=== PATIENT | male | born 1975 | race Caucasian/White ===

== ENCOUNTER 2023-01-26 03:11 | Emergency (ER) | payer OTHER ==
[~2023-01-26] VITALS: Ht 167.6 cm; Wt 93.2 kg
[2023-01-26] MEDS: ondansetron/PF 4mg/2ml inj IV STA ×2 (03:48→04:08)
[2023-01-26] MEDS: morphine 4 MG/ML inj SYRINge IV STA ×2 (03:48→04:08)
[2023-01-26] MEDS: ketorolac trometh. 30mg/ml inj. IV STA ×2 (03:48→04:08)
[2023-01-26 03:49] LABS: BASOPHILS # (AUTO) 0.1 X10'3 (0-0.2); BASOPHILS % (AUTO) 0.9 % (0-1); EOSINOPHILS # (AUTO) 0.1 X10'3 (0-0.9); EOSINOPHILS % (AUTO) 1.1 % (0-6); HEMATOCRIT 41.3 % (42.0-52.0); LYMPHOCYTES # (AUTO) 1.6 X10'3 (1.1-4.8); LYMPHOCYTES % (AUTO) 19.2 % (21-51); MEAN CORPUSCULAR VOLUME 94.3 FL (78-98); MEAN PLATELET VOLUME 7.3 FL (7.4-10.4); MONOCYTES # (AUTO) 0.6 X10'3 (0-0.9); MONOCYTES % (AUTO) 6.8 % (2-12); PLATELET COUNT 228 X10'3 (140-440); RED BLOOD COUNT 4.38 X10'6 (4.70-6.10); RED CELL DISTRIBUTION WIDTH 13.6 % (11.5-14.5); WHITE BLOOD COUNT 8.3 X10'3 (4.5-11.0)
[2023-01-26] MEDS ORDERED: famotidine/PF 10 mg/ml inj IV ONE (03:50)
[2023-01-26] MEDS ORDERED: ondansetron/PF 4mg/2ml inj IV ONE (03:50)
[2023-01-26] MEDS ORDERED: morphine 4 MG/ML inj SYRINge IV ONE (03:50)
--- NOTE | 2023-01-26 04:01 | NUR ---
0348 IV MEDS ZOFRAN, MS AND TORADOL ADMIN PER ORDER BY RITESH Hyman CHARTED UNDER THIS NURSES NAME ERRONOUSLY. EC SYSTEM WILL NOT ALLOW FOR ANY ADMINISTRATION CHANGES. NO ASE NOTED, APPEARS TO BE EFFECTIVE THUS FAR. PT REPORTS 0/10 PAIN.
[2023-01-26 04:02] LABS: ANION GAP 8 (8-16); BLOOD UREA NITROGEN 20 MG/DL (7-18); BUN/CREATININE RATIO 14.1 (10.0-20.0); CHLORIDE 101 MMOL/L (99-107); CREATININE 1.42 MG/DL (0.60-1.10); GLUCOSE 161 MG/DL (70-104); POTASSIUM 3.4 MMOL/L (3.5-5.1); SODIUM 136 MMOL/L (135-145); TOTAL CARBON DIOXIDE 26.8 MMOL/L (24-32)
[2023-01-26 04:03] LABS: ALANINE AMINOTRANSFERASE 34 U/L (12-78); ALBUMIN 4.2 G/DL (3.4-5.0); ALKALINE PHOSPHATASE 69 IU/L (46-116); ASPARTATE AMINO TRANSFERASE 27 U/L (10-37); BILIRUBIN,TOTAL 0.5 MG/DL (0.1-1.0); CALCIUM 8.9 MG/DL (8.5-10.1); ETHANOL < 10 MG/DL (<10); LIPASE 21 U/L (16-77); MAGNESIUM 1.9 MG/DL (1.5-2.4); TOTAL PROTEIN 8.4 G/DL (6.4-8.2); eCRCL 59 ML/MIN; eGFR 54 ML/MIN
--- NOTE | 2023-01-26 05:50 | NUR ---
UNABLE TO OBTAIN A TEMP ON PT, ORAL, TEMPORAL AND AXILLARY. PT FEELS WARM AND NO C/O BEING COLD OR CHILLS. CRN AND PROVIDER AWARE.
[2023-01-26 06:12] LABS: BILIRUBIN,URINE NEGATIVE (Neg); CLARITY,URINE CLEAR (Clear); COLOR,URINE YELLOW (Yellow); GLUCOSE, URINE NEGATIVE (Neg); KETONES,URINE NEGATIVE (Neg); LEUKOCYTE ESTERASE ,URINE NEGATIVE (Neg); NITRITES, URINE NEGATIVE (Neg); OCCULT BLOOD,URINE MODERATE (Neg); PROTEIN,URINE NEGATIVE (Neg); UROBILINOGEN,URINE 0.2 E.U/dL (0.2-1.0)
[2023-01-26 06:20] LABS: UA COLLECTION TYPE CLN CATCH MIDSTREAM
[2023-01-26 06:25] LABS: BACTERIA,URINE FEW /HPF (Neg); HYALINE CASTS 0-3 /LPF (NEGATIVE); MUCUS STRANDS MODERATE /LPF (Neg); SQUAMOUS EPITHELIAL CELL,UR FEW /LPF (FEW)
[2023-01-26 06:33] VITALS: TEMP 97.8
[2023-01-26 06:48] LABS: URINE AMPHETAMINE SCREEN NEGATIVE (Neg); URINE BARBITUATE SCREEN NEGATIVE (Neg); URINE BENZODIAZEPINES SCREEN NEGATIVE (Neg); URINE CANNABINOID SCREEN NEGATIVE (Neg); URINE COCAINE SCREEN NEGATIVE (Neg); URINE METHADONE SCREEN NEGATIVE (Neg); URINE OPIATE SCREEN POSITIVE (Neg); URINE PHENCYCLIDINE SCREEN NEGATIVE (Neg)
[2023-01-26] MEDS ORDERED: CEPH-585 PO (07:57)
[2023-01-26 08:24] VITALS: BP 103/59; PULSE 55; RESP 16; O2SAT 98
== END 2023-01-26 08:26 | disposition home or self-care (01) ==
LOC: ER 03:12
DX: N39.0 Urinary tract infection, site not specified (principal)
CPT/HCPCS: 36415; 74176; 80053; 80305; 80320; 81001; 83690; 83735; 85025; 87088; 96374; 96375; 99285; J1885; J2270; J2405; J3490